=== PATIENT | female | born 1945 | race Caucasian/White ===

== ENCOUNTER 2020-03-19 08:06 | Emergency (ER) | payer MEDICARE, OTHER ==
[~2020-03-19] VITALS: Ht 160 cm; Wt 65.0 kg
--- NOTE | 2020-03-19 08:31 | ED General ---
General Stated Complaint: AMS History of Present Illness Date Seen by Provider: Mar 19, 2020 Time Seen by Provider: 08:26 Initial Comments 74-year-old female presents by private vehicle. Patient presents for "lightheadedness" patient is extremely anxious and states that she thinks she is just confused and not comprehending. When when asked why she feels that she is confused or not comprehending she states because she "does not understand why she is lightheaded" patient is extremely anxious states that she is scared she might be having a TIA. Patient is already been diagnosed with a TIA. However she is currently driving her son to to see a neurologist following a stroke. She is very very anxious and the more she talks about the more anxious nervous she becomes. Patient has no focal deficits no complaints of weakness, numbness, tingling, facial droop, speech problems, cough fever chills or no other systemic complaints. Patient does report she has a diagnosis of anxiety Allergies and Home Medications Allergies Coded Allergies: No Known Drug Allergies (Unverified , 03/19/20) Patient Home Medication List Home Medication List Reviewed: Yes Review of Systems Review of Systems Constitutional: see HPI; No fever, No malaise, No weakness EENTM: no symptoms reported; No vision loss, No throat pain Respiratory: No cough, No short of breath Cardiovascular: No chest pain, No palpitations Gastrointestinal: No abdominal pain, No diarrhea, No nausea, No vomiting Genitourinary: no symptoms reported Musculoskeletal: No back pain Skin: no symptoms reported Psychiatric/Neurological: See HPI, Anxiety Hematologic/Lymphatic: No Symptoms Reported Immunological/Allergic: no symptoms reported Past Cmhhkkg-Gbsnin-Sjwybh Hx Past Med/Social Hx: Reviewed Nursing Past Med/Soc Hx Physical Exam Vital Signs Vital Signs - First Documented 03/19/20 08:27 Temp 37.1 Pulse 64 Resp 18 B/P (MAP) 187/86 (119) Pulse Ox 99 O2 Delivery Room Air Capillary Refill : Height, Weight, BMI Height: '" Weight: lbs. oz. kg; BMI Method: General Appearance: No Apparent Distress, WD/WN HEENT: PERRL/EOMI, Pharynx Normal Neck: Full Range of Motion, Normal Inspection, Non Tender Respiratory: Lungs Clear, Normal Breath Sounds, No Accessory Muscle Use, No Respiratory Distress Cardiovascular: Regular Rate, Rhythm, No Edema Gastrointestinal: Non Tender, Soft Extremity: Normal Capillary Refill, Normal Inspection, Normal Range of Motion Neurologic/Psychiatric: Alert, Oriented x3, No Motor/Sensory Deficits, Normal Mood/Affect Skin: Normal Color, Warm/Dry Lymphatic: No Adenopathy Progress/Results/Core Measures Suspected Sepsis SIRS Temperature: Pulse: Respiratory Rate: Laboratory Tests 03/19/20 08:41: White Blood Count 6.1 Blood Pressure / Mean: Laboratory Tests 03/19/20 08:41: Creatinine 0.69, INR Comment 1.0, Platelet Count 238, Total Bilirubin 0.4 Results/Orders Lab Results Laboratory Tests Test 03/19/20 08:15 03/19/20 08:21 03/19/20 08:41 Range/Units Urine Color YELLOW Urine Clarity SLIGHTLY CLOUDY Urine pH 8.0 5-9 Urine Specific Randle 1.015 L 1.016-1.022 Urine Protein NEGATIVE NEGATIVE Urine Glucose (UA) NEGATIVE NEGATIVE Urine Ketones NEGATIVE NEGATIVE Urine Nitrite NEGATIVE NEGATIVE Urine Bilirubin NEGATIVE NEGATIVE Urine Urobilinogen 0.2 < = 1.0 MG/DL Urine Leukocyte Esterase 1+ H NEGATIVE Urine RBC (Auto) NEGATIVE NEGATIVE Urine RBC NONE /HPF Urine WBC 10-25 H /HPF Urine Squamous Epithelial Cells 25-50 H /HPF Urine Crystals NONE /LPF Urine Bacteria FEW H /HPF Urine Casts NONE /LPF Urine Mucus NEGATIVE /LPF Urine Culture Indicated YES Glucometer 88 70-110 MG/DL White Blood Count 6.1 4.3-11.0 10^3/uL Red Blood Count 4.05 L 4.35-5.85 10^6/uL Hemoglobin 13.6 11.5-16.0 G/DL Hematocrit 37 35-52 % Mean Corpuscular Volume 92 80-99 FL Mean Corpuscular Hemoglobin 34 25-34 PG Mean Corpuscular Hemoglobin Concent 36 32-36 G/DL Red Cell Distribution Width 12.7 10.0-14.5 % Platelet Count 238 130-400 10^3/uL Mean Platelet Volume 10.8 H 7.4-10.4 FL Immature Granulocyte % (Auto) 1 % Neutrophils (%) (Auto) 67 42-75 % Lymphocytes (%) (Auto) 21 12-44 % Monocytes (%) (Auto) 8 0-12 % Eosinophils (%) (Auto) 3 0-10 % Basophils (%) (Auto) 1 0-10 % Neutrophils # (Auto) 4.1 1.8-7.8 X 10^3 Lymphocytes # (Auto) 1.3 1.0-4.0 X 10^3 Monocytes # (Auto) 0.5 0.0-1.0 X 10^3 Eosinophils # (Auto) 0.2 0.0-0.3 10^3/uL Basophils # (Auto) 0.1 0.0-0.1 10^3/uL Immature Granulocyte # (Auto) 0.0 0.0-0.1 10^3/uL Prothrombin Time 13.0 12.2-14.7 SEC INR Comment 1.0 0.8-1.4 Activated Partial Thromboplast Time 32 24-35 SEC D-Dimer 3.64 H 0.00-0.49 UG/ML Sodium Level 132 L 135-145 MMOL/L Potassium Level 4.1 3.6-5.0 MMOL/L Chloride Level 93 L 98-107 MMOL/L Carbon Dioxide Level 30 21-32 MMOL/L Anion Gap 9 5-14 MMOL/L Blood Urea Nitrogen 9 7-18 MG/DL Creatinine 0.69 0.60-1.30 MG/DL Estimat Glomerular Filtration Rate > 60 BUN/Creatinine Ratio 13 Glucose Level 98 70-105 MG/DL Calcium Level 9.4 8.5-10.1 MG/DL Corrected Calcium 9.0 8.5-10.1 MG/DL Total Bilirubin 0.4 0.1-1.0 MG/DL Aspartate Amino Transf (AST/SGOT) 25 5-34 U/L Alanine Aminotransferase (ALT/SGPT) 20 0-55 U/L Alkaline Phosphatase 79 40-136 U/L Troponin I < 0.30 <0.30 NG/ML Total Protein 7.3 6.4-8.2 GM/DL Albumin 4.5 3.2-4.5 GM/DL My Orders Orders - BARR,LILLY L DO Urinalysis (03/19/20 08:11) Cbc With Automated Diff (03/19/20 08:32) Protime With Inr (03/19/20 08:32) Partial Thromboplastin Time (03/19/20 08:32) Comprehensive Metabolic Panel (03/19/20 08:32) Fibrin Degradation Products (03/19/20 08:32) Troponin I Fs (03/19/20 08:32) Chest 1 View Ap/Pa Only (03/19/20 08:32) Ekg Tracing (03/19/20 08:32) Accucheck Stat ONCE (03/19/20 08:32) Ed Iv/Invasive Line Start (03/19/20 08:32) Vital Signs Stroke Patient Q15M (03/19/20 08:32) Ct Head Wo-R/O Stroke (03/19/20 08:32) Intake & Output 06,14,22 (03/19/20 08:32) Monitor-Rhythm Ecg Trace Only (03/19/20 08:32) Dysphagia Screening Tool (03/19/20 08:32) Urine Culture (03/19/20 08:15) Vital Signs/I&O 03/19/20 08:27 Temp 37.1 Pulse 64 Resp 18 B/P (MAP) 187/86 (119) Pulse Ox 99 O2 Delivery Room Air Capillary Refill : Progress Note : Progress Note Patient's work-up showed no significant medical acute abnormalities. She did have an elevated D-dimer but no signs of shortness of breath or other indications to further evaluate with a CTA. Patient symptoms were much more consistent with an acute stress reaction. The more I visited with her more she admitted to having a history of anxiety along with being in very anxious about the coronavirus along with her son's recent diagnosis of a stroke. This seem to be exacerbated in route to [place] to meet with a neurologist. Patient's symptoms improved and blood pressure improved and she relaxed throughout her stay here. Patient stable will be discharged home. She should follow-up with her primary care provider for continuation of care and further outpatient evaluation as needed ECG Initial ECG Impression Date: Mar 19, 2020 Initial ECG Impression Time: 08:47 Initial ECG Rate: 59 Initial ECG Rhythm: Normal Sinus, PAC Comment hr 59, sinus, occasional pac Departure Impression Primary Impression: Acute reaction to stress Disposition: 01 HOME, SELF-CARE Condition: Stable Departure-Patient Inst. Referrals: NO,LOCAL PHYSICIAN (PCP/Family) Primary Care Physician Patient Instructions: Stress, Anxiety, Adult ED LILLY BARR DO Mar 19, 2020 08:31
[2020-03-19 09:02] LABS: CLARITY,URINE SLIGHTLY CLOUDY; COLOR,URINE YELLOW
[2020-03-19 09:03] LABS: BACTERIA,URINE FEW /HPF; BILIRUBIN,URINE NEGATIVE (NEGATIVE); GLUCOSE, URINE (UA) NEGATIVE (NEGATIVE); KETONES,URINE NEGATIVE (NEGATIVE); LEUKOCYTE ESTERASE ,URINE 1+ (NEGATIVE); NITRITE,URINE NEGATIVE (NEGATIVE); PROTEIN,URINE NEGATIVE (NEGATIVE); SQUAMOUS EPITHELIAL CELL,UR 25-50 /HPF
--- NOTE | 2020-03-19 09:03 | Diagnostic Imaging Report ---
PROCEDURE: CT head wo r/o stroke. TECHNIQUE: Multiple contiguous axial images were obtained through the brain without the use of intravenous contrast. Auto Exposure Controls were utilized during the CT exam to meet ALARA standards for radiation dose reduction. INDICATION: Stroke. Lightheaded. Dizziness. COMPARISON: None. FINDINGS: No CT evidence of a territorial infarction. Intracranial vascular calcifications. Mild generalized cerebral and cerebellar parenchymal volume loss. No intracranial hemorrhage, mass effect, hydrocephalus or extra-axial fluid collections. Osseous structures are intact. Paranasal sinuses and mastoids are clear where seen. IMPRESSION: No acute intracranial CT findings. Dictated by: Dictated on workstation # [id number]
[2020-03-19 09:07] LABS: BASOPHILS # (AUTO) 0.1 10^3/uL (0.0-0.1); BASOPHILS % (AUTO) 1 % (0-10); EOSINOPHILS # (AUTO) 0.2 10^3/uL (0.0-0.3); EOSINOPHILS % (AUTO) 3 % (0-10); HEMATOCRIT 37 % (35-52); HEMOGLOBIN 13.6 G/DL (11.5-16.0); LYMPHOCYTES # (AUTO) 1.3 X 10^3 (1.0-4.0); LYMPHOCYTES % (AUTO) 21 % (12-44); MEAN CORPUSCULAR HEMOGLOBIN 34 PG (25-34); MEAN CORPUSCULAR HGB CONC 36 G/DL (32-36); MEAN CORPUSCULAR VOLUME 92 FL (80-99); MEAN PLATELET VOLUME 10.8 FL (7.4-10.4); MONOCYTES # (AUTO) 0.5 X 10^3 (0.0-1.0); MONOCYTES % (AUTO) 8 % (0-12); NEUTROPHILS # (AUTO) 4.1 X 10^3 (1.8-7.8); NEUTROPHILS % (AUTO) 67 % (42-75); PLATELET COUNT 238 10^3/uL (130-400); WHITE BLOOD COUNT 6.1 10^3/uL (4.3-11.0)
[2020-03-19 09:15] LABS: BUN/CREATININE RATIO 13; CALCIUM 9.4 MG/DL (8.5-10.1); CARBON DIOXIDE 30 MMOL/L (21-32); CHLORIDE 93 MMOL/L (98-107); CREATININE SERUM 0.69 MG/DL (0.60-1.30); GFR ESTIMATED > 60; GLUCOSE 98 MG/DL (70-105); POTASSIUM 4.1 MMOL/L (3.6-5.0); SODIUM 132 MMOL/L (135-145)
[2020-03-19 09:16] LABS: ALANINE AMINOTRANSFERASE 20 U/L (0-55); ALBUMIN 4.5 GM/DL (3.2-4.5); ALKALINE PHOSPHATASE 79 U/L (40-136); BILIRUBIN,TOTAL 0.4 MG/DL (0.1-1.0); TOTAL PROTEIN 7.3 GM/DL (6.4-8.2)
--- NOTE | 2020-03-19 09:16 | Diagnostic Imaging Report ---
HISTORY: Lightheadedness. TECHNIQUE: Frontal view of the chest. COMPARISON: None FINDINGS: Lung volumes are normal. There is subtle nodular density in the right lung base measuring about 1.8 cm in diameter. No pleural effusion or pneumothorax is seen. The cardiac silhouette is normal in size. There is aortic atherosclerosis. IMPRESSION: 1. Nodular density at the right lung base, consider CT for further evaluation. Dictated by: Dictated on workstation # [id number]
[2020-03-19 09:18] LABS: FIBRIN DEGRADATION PRODUCTS 3.64 UG/ML (0.00-0.49)
[2020-03-19 09:42] VITALS: BP 145/88
== END 2020-03-19 09:39 | disposition home or self-care (01) ==
LOC: EDUNIT# 08:06 → ER FS 08:10
DX: F43.0 Acute stress reaction (principal); F41.9 Anxiety disorder, unspecified
CPT/HCPCS: 36415; 70450; 71045; 80053; 81000; 82962; 84484; 85025; 85379; 85610; 85730; 87088; 93005; 93041